=== PATIENT | male | born 1995 | race Caucasian/White ===

== ENCOUNTER 2021-04-14 23:00 | Emergency (ER) | payer MEDICAID, SELFPAY ==
[2021-04-14 23:10] VITALS: BP 101/59; PULSE 63; RESP 16; TEMP 37.1; O2SAT 98; BMI 24.7
--- NOTE | 2021-04-14 23:30 | ED.SYNCOPE ---
HPI - Syncope General Chief Complaint: Syncope Stated Complaint: syncope low blood sugar Time Seen by Provider: 04/14/21 23:30 Source: patient and EMS Mode of arrival: EMS Limitations: no limitations History of Present Illness HPI narrative: saw blood on his finger after cutting it almost passed out - EMS noted BS of 78 patient is diabetic but he does not have these episodes in the 70s complaint: felt faint and almost passed out Onset (ago): minute(s) -: minutes(s) Prodromal symptoms: lightheaded, palpitations and nausea/vomiting Witnessed: Yes - by Bystander Context: other (after cutting his hand and seeing blood) Injuries sustained associated with event: none Current symptoms: back to baseline History: other (diabetes) Treatments prior to arrival: glucose Related Data Allergies Allergy/AdvReac Type Severity Reaction Status Date / Time No Known Allergies Allergy Unverified 04/11/20 19:26 [No Known Allergies*] Review of Systems Review of Systems: Constitutional : No Fever, No Chills, ENT/Mouth : No sore throat, No Rhinorrhea Eyes: No Eye Pain, No Swelling, No Redness Cardiovascular : No Chest Pain, No SOB Respiratory : No Cough, No Sputum, No Wheezing Gastrointestinal : pos Nausea, pos Vomiting, No Diarrhea, No Constipation, No abdominal Pain, No Hematochezia, No Melena Genitourinary : No Dysuria, No Urinary Frequency, No Hematuria, Musculoskeletal : No joint pain, No Myalgias, No Joint Swelling Skin : No Skin Lesions, No rash, pos skin lac Neuro : No Weakness, No Numbness, No Dizziness, No Headache, pos near syncope PMFSH Past Medical History Attestation statement: The following information was validated with the patient. Medical History Diabetes Family History Family History (Updated 12/12/20 @ 09:16 by RICARDO Turcios) Mother Suicidal intent Cardiovascular disease Substance abuse Sister Healthy adult Maternal Grandfather Myocardial infarction Maternal Grandmother Myocardial infarction Social History Social History (Updated 04/14/21 @ 23:54 by Rhiannon Choudhary DO) Patient Tobacco Use Status: Never used Tobacco Use of substances other than those prescribed or required for medical reasons: No Advance Directives: No Advance Directives Information Provided: No Physical Exam Vital Signs: Vital Signs: Last Vital Signs Temp 98.7 F 09/20/21 23:10 Pulse 63 04/14/21 23:10 Resp 16 04/14/21 23:10 BP 101/59 L 04/14/21 23:10 Pulse Ox 98 04/14/21 23:10 Body Mass Index 24.7 Appearance: Alert. Oriented X3. No acute distress. Eyes: Pupils equal, round and reactive to light. ENT: Pharynx normal. Neck: Normal inspection. Neck supple. CVS: Normal heart rate and rhythm. Pulses normal. Respiratory: No respiratory distress. Breath sounds normal. Abdomen: Soft and nontender. Skin: Skin warm and dry. Normal skin color. R hand dorsum over 1st MCP (knuckle) superficial linear 1cm laceration very superficial in nature full ROM of joint Extremities: No lower extremity edema. No calf ttp Neuro: Oriented X 3. No motor deficit. No sensory deficit. MDM - Syncope MDM Narrative Medical decision making narrative: 25 yo male cut R hand on knuckle at work saw the blood and became dizzy and rapid breathing felt like he was going to pass out - EMS notes that BS was 76 (did throw up and try to take soda in but it didn't stay down) he doesn't normally get this way with BS in 70s. I suspect he had a near syncopal event with the sight of blood. He is back to baseline, stable for DC Procedures Laceration Laceration 1: Site: hand Side (If applicable): right Size (cm): 1 Description: linear Depth: simple, single layer Pre-repair: wound explored and irrigated extensively Skin layer closed with: other (dermabond) Discharge Plan Discharge Clinical Impression: Near syncope, Laceration Instructions: Near Syncope (ED), Laceration (ED) Additional Instructions: return to ED for any worsening symptoms or concerns skin glue will come off in 7 to 10 days - okay to shower but that's it. do not soak for long periods of time Stand Alone Forms: Work/School Release
[2021-04-15] VITALS: BP 101/62; PULSE 75; RESP 16; O2SAT 99
[2021-04-15 00:14] LABS: Glucose, Whole Blood 91 mg/dL (60-115)
[2021-04-15 00:14] LABS: Glucose, Whole Blood 98 mg/dL (60-115)
== END 2021-04-15 00:14 | disposition home or self-care (01) ==
PROVIDERS: Emergency Provider Emergency Medicine
DX: S61.411A Laceration without foreign body of right hand, initial encounter (principal); R55 Syncope and collapse; M79.641 Pain in right hand; W29.8XXA Contact with other powered hand tools and household machinery, initial encounter; Y93.9 Activity, unspecified; Y92.9 Unspecified place or not applicable; Y99.9 Unspecified external cause status
CPT/HCPCS: 12001; 82947; 99283; 99284

== ENCOUNTER 2021-07-31 13:22 | Outpatient (REF) | payer MEDICAID, SELFPAY ==
[2021-07-31 15:58] LABS: Binax Internal Control QC Valid; Binax Now Covid-19 Ag Positive (Negative)
== END 2021-07-31 13:23 | disposition home or self-care (01) ==
LOC: HO.LAB 13:22
PROVIDERS: Visit Provider Internal Medicine
DX: Z20.822 Contact with and (suspected) exposure to COVID-19 (principal)
CPT/HCPCS: 36415; C9803

== ENCOUNTER → 2022-04-28 14:54 | Outpatient (BNVA) | payer MEDICAID, SELFPAY | PROVIDERS: PCP Nurse Practitioner; Visit Provider Internal Medicine Endocrinology, Diabetes & Metabolism | DX: E10.65 Type 1 diabetes mellitus with hyperglycemia (principal) | CPT/HCPCS: 82947; 83036; 99202 ==

== ENCOUNTER 2022-05-21 08:15 | Outpatient (REF) | payer MEDICAID, SELFPAY ==
[2022-05-21 09:56] LABS: Anion Gap 14 (12-20); Blood Urea Nitrogen 17 mg/dL (9-16); Calcium 9.8 mg/dL (8.4-10.2); Carbon Dioxide 28 mmol/L (22-29); Chloride 105 mmol/L (96-108); Cholesterol 167 mg/dL; Estimated Glomerular Filt Rate > 60; HDL Cholesterol 77 mg/dL; Potassium 4.6 mmol/L (3.3-5.1); Sodium 142 mmol/L (135-145)
[2022-05-21 10:39] LABS: Creatinine Urine 81.59 mg/dL; Microalbumin Urine < 5.0 mg/L
[2022-05-21 10:43] LABS: Glucose Random 29 mg/dL (60-115); LDL Cholesterol Calculated 84 mg/dl; Triglycerides 31 mg/dL
== END 2022-05-21 08:16 | disposition home or self-care (01) ==
LOC: HO.LAB 08:15
PROVIDERS: PCP Nurse Practitioner; Visit Provider Internal Medicine Endocrinology, Diabetes & Metabolism
DX: E10.65 Type 1 diabetes mellitus with hyperglycemia (principal)
CPT/HCPCS: 36415; 80048; 80061; 82043